=== PATIENT | male | born 1980 ===

== ENCOUNTER 2016-09-27 02:23 | Emergency (ER) | payer OTHER ==
[2016-09-27 02:33] VITALS: TEMP 98.6; O2SAT 100
[2016-09-27] MEDS ORDERED: Lidocaine 1% Inj (20ml) ONE ×2 (03:11→04:27)
[2016-09-27 03:43] LABS: VENOUS BLOOD GAS PCO2 107 mmHg (40-60); VENOUS BLOOD PH < 6.80 (7.32-7.43)
[2016-09-27] MEDS ORDERED: Phenylephrine 0.5% Nasal Spray NAS PRN (03:52)
--- NOTE | 2016-09-27 04:32 | ED PDOC ---
HPI: Male Pain Time Seen by Provider: 09/27/16 02:38 Chief Complaint (Nursing): Male Genitourinary Chief Complaint (Provider): Male Genitourinary History Per: Patient History/Exam Limitations: no limitations Onset/Duration Of Symptoms: Hrs (14x) Current Symptoms Are (Timing): Still Present Severity: Moderate Quality Of Discomfort: Other (mild pain) Additional Complaint(s): 35 year old male presents to the ED with complaints of an erection that has persisted for the past 14x hours after taking 60mg po of cialis. He is able to urinate, but has had no ejaculation. He denies having any other medical complaints and denies having any other drug use. PMD: Matheus Lovell MD Past Medical History Reviewed: Historical Data, Nursing Documentation, Vital Signs Vital Signs: Last Vital Signs Temp 98.6 F 09/27/16 02:31 Pulse 125 H 09/27/16 02:31 Resp 20 09/27/16 02:31 BP 140/85 09/27/16 02:31 Pulse Ox 100 09/27/16 02:31 - Medical History PMH: No Chronic Diseases - Family History Family History: States: Unknown Family Hx - Social History Alcohol: Other (yes) Drugs: Denies - Home Medications Home Medications: Ambulatory Orders Medication Instructions Recorded No Known Home Med 09/27/16 - Allergies Allergies/Adverse Reactions: Allergies Allergy/AdvReac Type Severity Reaction Status Date / Time No Known Allergies Allergy Verified 09/27/16 03:14 Review of Systems ROS Statement: Except As Marked, All Systems Reviewed And Found Negative Genitourinary Male: Positive for: Other (persistent erection, mild pain) Physical Exam - Reviewed Nursing Documentation Reviewed: Yes Vital Signs Reviewed: Yes - Physical Exam Appears: Positive for: Well, Non-toxic, No Acute Distress Head Exam: Positive for: ATRAUMATIC, NORMOCEPHALIC Cardiovascular/Chest: Positive for: Regular Rate, Rhythm Respiratory: Positive for: Normal Breath Sounds Male Genital Exam: Positive for: other (fully erect penis, sensation in tact, rigid) Neurologic/Psych: Positive for: Alert, Oriented (3x) - Laboratory Results Result Diagrams: 09/27/16 04:46 09/27/16 04:46 - ECG O2 Sat by Pulse Oximetry: 100 (RA) Pulse Ox Interpretation: Normal Medical Decision Making Medical Decision Makin:38 Initial impression: 35 year old male with priapism. Initial plan: * type and screen * VBG shock panel * BMP * drug screen urinary * urology consult * CBC * efren-synephrine .5% nasal spray: 1 spry APRIL Q4 PRN * phenylephrine inj 5mg IV UD * urinalysis * pelvis ultrasound (US unavailable) * reevaluation 3:38 Ultrasound is unavailable. Based on blood gas analysis, concerned for ischemic priapism. Discussed case with , will call back for further instruction. 5:38 Dr. Humphries is at bedside. 645AM: Dr. Humphries still at [facility] performing de-tuminesence. will sign out to day team pending results of procedure. Scribe Attestation: Documented by Kamilla Gann, acting as a scribe for Wayne Vincent MD. Provider Scribe Attestation: All medical record entries made by the Scribe were at my direction and personally dictated by me. I have reviewed the chart and agree that the record accurately reflects my personal performance of the history, physical exam, medical decision making, and the department course for this patient. I have also personally directed, reviewed, and agree with the discharge instructions and disposition. Disposition - Clinical Impression Clinical Impression: Priapism - Patient ED Disposition Is Patient to be Admitted: Transfer of Care - Disposition Disposition: Transfer of Care Disposition Time: 07:00 Condition: STABLE Patient Signed Over To: Jessica Peterson Handoff Comments: pending reassessment post-procedure
[2016-09-27 04:50] LABS: BASO % 0.2 % (0.0-2.0); EOS # 0.1 K/uL (0.0-0.7); EOS % 0.5 % (0.0-4.0); HEMATOCRIT 41.3 % (35.0-51.0); LYMPH # 1.8 K/uL (1.0-4.3); LYMPH % 11.7 % (20.0-40.0); MEAN CELL VOLUME 91.7 fl (80.0-94.0); MEAN CORPUSCULAR HEMOGLOBIN 31.2 pg (27.0-31.0); MEAN PLATELET VOLUME 7.5 fl (7.2-11.7); MONO # 1.6 K/uL (0.0-0.8); MONO % 10.6 % (0.0-10.0); NEUT # 11.8 K/uL (1.8-7.0); RED CELL DISTRIBUTION WIDTH 13.4 % (11.5-14.5); WHITE BLOOD COUNT 15.3 K/uL (4.8-10.8)
[2016-09-27 04:57] LABS: BLOOD UREA NITROGEN 17 mg/dl (9-20); CALCIUM 9.6 mg/dL (8.4-10.2); CARBON DIOXIDE 22 mmol/L (22-30); CHLORIDE 103 mmol/L (98-107); GFR AFRICAN-AMERICAN > 60; GLUCOSE,RANDOM 114 mg/dL (75-110); POTASSIUM 4.4 MMOL/L (3.6-5.0); SODIUM 140 mmol/l (132-148)
[2016-09-27] MEDS ORDERED: Povidone Iodine Topical 10% Sol ONE (05:44)
[2016-09-27] MEDS ORDERED: ceFAZolin 1 GM in Sodium Chloride 0.9% 100 ML IVPB STA (05:57)
--- NOTE | 2016-09-27 07:16 | ED PDOC ---
- Laboratory Results Result Diagrams: 09/27/16 04:46 09/27/16 04:46 - ECG O2 Sat by Pulse Oximetry: 100 (RA) Medical Decision Making Medical Decision Makin: Patient signed out by dr Vincent pending dispo. Scribe Attestation: Documented by Mariela Urena training under Christal Ramon, acting as a scribe for Dr. Pteerson. Provider Scribe Attestation: All medical record entries made by the Scribe were at my direction and personally dictated by me. I have reviewed the chart and agree that the record accurately reflects my personal performance of the history, physical exam, medical decision making, and the department course for this patient. I have also personally directed, reviewed, and agree with the discharge instructions and disposition. 8.30a - patient seen and treated by Dr. Humphries. Rx for Keflex given and ready for discharge. Disposition Doctor Will See Patient In The: Office Counseled Patient/Family Regarding: Diagnosis, Need For Followup, Rx Given - Clinical Impression Clinical Impression: Priapism - POA Present On Arrival: None - Disposition Referrals: Tim Humphries MD [Staff Provider] - Disposition: Routine/Home Disposition Time: 08:30 Condition: STABLE Prescriptions: Acetaminophen [Tylenol 325mg tab] 650 mg PO Q6H PRN #50 tab PRN Reason: Pain, Mild (1-3) Instructions: Priapism (ED)
[2016-09-27 10:34] VITALS: PULSE 90; RESP 18
[2016-09-27 10:44] VITALS: BP 124/84
--- NOTE | 2016-09-27 11:32 | CON ---
DATE: 09/27/2016 Date of consultation and ER procedure 09/27/2016, which began at about 5:30 a.m. 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 A penile corporal blood gas was done in the ER, which showed definite ischemic priapism with an extremely low pO2 of 21.0 and a CO2 of over 107, indicating ischemic priapism. This is the patient's first episode of priapism and he never took any other ED medications. He has no other medical problems. SOCIAL HISTORY: He is a nonsmoker and a very rare social drinker. ALLERGIES: He has no known allergies to any medications. PAST SURGICAL HISTORY: Lasik eye surgery both eyes 10 years ago. FAMILY HISTORY: Noncontributory. He also denies any voiding problems. No dysuria, gross hematuria, renal colic, or abdominal pain. He has extreme pain on his penile shaft, especially with bending of the penis. He denies any history of any kidney disease or kidney stones. No history of prostate cancer or family history of prostate cancer. No history of any ED prior to the priapism. ADDITIONAL LABORATORY EVALUATION: His chem profile on 09/27/2016 shows a sodium of 140, potassium 4.4, chloride 103, CO2 22, BUN and creatinine of 17 and 0.9 respectively with a GFR of greater than 60 and a random glucose is 114. His calcium was 9.6. His CBC shows a WBC count of 15.3, hemoglobin and hematocrit were 14.1 and 41.3 respectively with a platelet count of 392,000. The detumescence procedure was discussed with the patient extensively at the bedside and he was advised that due to the duration of his priapism, that he is at very high risk of having permanent impotence. The patient understood this completely. At the bedside, using 1% lidocaine, was injected subcutaneously and this was done multiple times, which was necessary for insertion of a larger needle, using an 18 gauge needle, to drain blood from the corpora cavernosa. This was done and also the corpora was also irrigated several times with at least 10 or 20 mL of normal saline each time. The patient also received every 10 minutes, 500 mcg/mL 1 mL of phenylephrine also injected into the corpora for a total of about 7 mL. This detumescence procedure took about over 2 hours with removal of over 700 mL of gross blood with clots. Finally, the penis was detumesced to about 80%. The patient became extremely comfortable after this procedure. The penis was able to be bent at the base, eventually the mid portion and the glans penis. The patient also received 1 gram of Rocephin IV during the procedure. At the end of the procedure, the penis was sterilized initially with Betadine solution prior to the start of the procedure. At the end of the procedure, bacitracin ointment was applied to the needle puncture sites on the dorsal aspect of the shaft of the penis, on the mid shaft, on the patient's right side. After applying the bacitracin ointment to the puncture wounds, sterile 3 x 3 dressings were applied to the wound and was held in place using a Coban type adhesive. Again, also discussed with the patient, was possibly the need for a Winter's shunt, which the patient actually did not want at this time. He was very satisfied with the results achieved in the ER and would like to go home at this time. PLAN: For this patient will be to discharge the patient home on Keflex 500 mg t.i.d. for 5 days. The patient will be given an oral pain medication on discharge, possibly Percocet. The patient was advised not to take any aspirin or NSAIDs, or any anti-inflammatory medications for at least the next several days. The patient will be seen in office followup in about 2 weeks. Tim Humphries MD cc: [id number] TT: 09/27/2016 11:32:13 Confirmation # [id number] Dictation # [id number] en [id number]
== END 2016-09-27 10:41 | disposition home or self-care (01) ==
LOC: H.ER 02:23
DX: N48.30 Priapism, unspecified (principal)